=== PATIENT | female | born 2000 | race Caucasian/White ===

== ENCOUNTER 2022-05-11 08:26 | Outpatient (CLI) | payer OTHER, SELFPAY ==
--- NOTE | 2022-05-11 08:45 | CRLHL7_ITS ---
For Patients: As a result of the Cures Act, medical imaging exams and procedure reports are released immediately into your electronic medical record. You may view this report before your referring provider. If you have questions, please contact your health care provider. INDICATION: First trimester scan, establish dates. COMPARISON: None. TECHNIQUE: Real-time castro-scale imaging of the pelvis was performed. FINDINGS: Sonographic imaging demonstrates a single living intrauterine gestation. The embryo demonstrates a regular cardiac rate measuring 161 beats per minute. The embryo`s crown-rump length measurement of 1.8 cm corresponds to a gestational age of 8 weeks 1 day with a sonographic due date of 12/20/2022. There is a normal-appearing yolk sac. There are no gross abnormalities noted within the embryo at this early state of development. The gestational sac has a normal appearance. There is no evidence of a perigestational hemorrhage. The amount of fluid within the sac appears appropriate for gestational age. The cervix is closed. The myometrium appears normal. Corpus luteal cyst right ovary measuring 1.4 cm. Simple ovarian cyst right ovary measuring 2.5 cm. Left ovary normal. Trace pelvic free fluid. Impression: Single living intrauterine with sonographic gestational age 8 weeks 1 day and sonographic due date 12/20/2022. Dictated by Peter Pearson MD @ 05/11/2022 9:40:01 AM (Electronically Signed)
== END 2022-05-11 08:27 | disposition home or self-care (01) ==
LOC: US 08:28
PROVIDERS: Visit Provider Advanced Practice Midwife
DX: Z34.91 Encounter for supervision of normal pregnancy, unspecified, first trimester (principal); Z3A.08 8 weeks gestation of pregnancy
CPT/HCPCS: 76817

== ENCOUNTER 2022-05-11 09:33 | Outpatient (CLI) | payer OTHER, SELFPAY | END 2022-05-11 09:34 | disposition home or self-care (01) | PROVIDERS: Visit Provider Advanced Practice Midwife | DX: Z34.91 Encounter for supervision of normal pregnancy, unspecified, first trimester (principal); Z3A.08 8 weeks gestation of pregnancy | CPT/HCPCS: 86592; 86703; 86762; 86787; 86803; 86850; 86900; 86901; 87086; 87340 ==

== ENCOUNTER 2022-08-03 08:05 | Outpatient (CLI) | payer OTHER, SELFPAY ==
--- NOTE | 2022-08-03 08:15 | CRLHL7_ITS ---
For Patients: As a result of the Century Cures Act, medical imaging exams and procedure reports are released immediately into your electronic medical record. You may view this report before your referring provider. If you have questions, please contact your health care provider. INDICATION: Evaluate anatomy. COMPARISON: 05/11/2022 TECHNIQUE: Real time castro scale imaging of the fetus was performed as well as color Doppler analysis of the umbilical vessels. FINDINGS: Sonographic imaging demonstrates a single living intrauterine gestation. Fetus demonstrates a regular cardiac rate of 159 beats per minute. Fetus has a keshia breech position. The placenta lies right posterior without evidence of placenta previa. The edge of the placenta is located 2.4 cm from the internal cervical os. Amniotic fluid volume appears normal. Single deepest vertical pocket: 5.6 cm. The cervix is closed and measures 4.4 cm in length. The composite ultrasound gestational age is calculated at 20 weeks 4 days with an estimated sonographic due date of 12/17/2022. The estimated weight is 359 grams which lies at the 67th %. The following biometric measurements were obtained: Biparietal diameter: 4.7 cm/20 weeks 2 days 56th% Head circumference: 17.9 cm/20 weeks 2 days 52nd% Abdominal circumference: 15.9 cm/21 weeks 0 days 72nd% Femur length: 3.2 cm/20 weeks 0 days 38th% The HC/AC ratio measures: 1.13 range (1.07-1.25) On anatomic survey, there is a normal appearance of the cerebral ventricles, cavum septi pellucidi, cisterna magna and cerebellum. The nose, lips, and facial profile appear normal. The cervical, thoracic and lumbar spine are well visualized and appear normal. There is a normal four-chamber heart view and the left and right ventricular outflow tracts appear normal. The diaphragm and stomach appear normal. The kidneys and bladder also appear normal. There is a normal three-vessel cord and there is an eccentric cord insertion site. The four extremities appear normal. IMPRESSION: Concordant of clinical and sonographic dating. No intrinsic abnormalities noted on anatomic survey. Eccentric cord insertion into the placenta located 1.9 cm from the placental edge. Dictated by Peter Pearson MD @ 08/03/2022 1:23:47 PM (Electronically Signed)
== END 2022-08-03 08:06 | disposition home or self-care (01) ==
LOC: US 08:09
PROVIDERS: Visit Provider Advanced Practice Midwife
DX: Z34.92 Encounter for supervision of normal pregnancy, unspecified, second trimester (principal); Z3A.20 20 weeks gestation of pregnancy
CPT/HCPCS: 76805

== ENCOUNTER 2022-10-08 10:04 | Outpatient (CLI) | payer OTHER, SELFPAY | END 2022-10-08 10:05 | disposition home or self-care (01) | LOC: NFLDREF 10-11 12:41 | PROVIDERS: Visit Provider Advanced Practice Midwife | DX: Z34.93 Encounter for supervision of normal pregnancy, unspecified, third trimester (principal) | CPT/HCPCS: 86592 ==

== ENCOUNTER 2022-11-23 15:00 | Outpatient (CLI) | payer OTHER, SELFPAY | END 2022-11-23 15:01 | disposition home or self-care (01) | PROVIDERS: Visit Provider Advanced Practice Midwife | DX: Z34.03 Encounter for supervision of normal first pregnancy, third trimester (principal); Z36.85 Encounter for antenatal screening for Streptococcus B; Z3A.36 36 weeks gestation of pregnancy | CPT/HCPCS: 87081; 87653 ==

== ENCOUNTER 2022-12-14 17:19 | Outpatient (CLI) | payer OTHER, SELFPAY ==
[2022-12-15 21:34] VITALS: BMI 26.7
== END 2022-12-14 17:20 | disposition home or self-care (01) ==
LOC: NFLDREF 17:20
PROVIDERS: Visit Provider Advanced Practice Midwife
DX: Z34.93 Encounter for supervision of normal pregnancy, unspecified, third trimester (principal); Z3A.39 39 weeks gestation of pregnancy
CPT/HCPCS: 87086

== ENCOUNTER 2022-12-15 21:26 | Inpatient (IN) | payer OTHER, SELFPAY ==
[2022-12-15 21:35] VITALS: BP 130/80; PULSE 88
--- NOTE | 2022-12-15 22:12 | W.PM.LDBA ---
Subjective History of Present Illness Narrative: Patient is being admitted to Labor and Delivery for active labor. She is a 22 year old at 39.2 weeks gestation. Her full history and physical was dictated by Светлана Lainez CNM on 11/30/22. Please see this for details. Merary started fernando this morning and they slowly increased as the day progressed. Around 1730 they became more regular and intense.She continued to labor at home with support from her partner and her cable tool operator. On admission she was found to be 6cm/90% per RN exam. She denies leaking fluids or bleeding but states that she did loose her mucus plug earlier this evening. She is coping well with contractions and desires a water . 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 History of anxiety was on Zoloft in college not needed since, did not feel meds were helpful for her 2. Varicella non-immune -needs vaccine PP COVID; Flu: TDAP: declines 32wk Mental Health: 10/22/2022 34wk Hgb: 11/09/2022 OB - Problem Based A/P Additional Plan (1) Pain during labor: Status: Acute (2) : Status: Acute Plan ASSESSMENT:? at 39.2 weeks gestation? GBS negative? Uncomplicated ? Active labor at term ?? PLAN:? 1. Candidate for analgesia of choice. Planning unmedicated .?? 2. Desires water . Consent signed. Hep C negative.? 3. Anticipate .? 4. Expectant management at this time.? 5. IV not needed at this time. Consider if patient condition changes per protocol. 6. Intermittent auscultation after reactive stip is obtained.? ? Delivery/Labor/Induction Plan Plan: expectant management OB Result Labs Blood Type: A (+) positive GBS Status: negative OB Exam Physical Exam Vital signs: Pulse BP 88 130/80 12/15/22 21:35 12/15/22 21:35 Narrative: Psychiatric:? Alert and oriented x3? HEENT:? Normocephalic, atraumatic? Neck:? Supple without adenopathy or thyromegaly? Lungs:? Clear to auscultation bilaterally? Heart:? Regular rate and rhythm, no murmur, rub or gallop? Abdomen:? Soft, nontender, and gravid? Extremities:? No edema or erythema? Detailed Labor and Delivery Exam Patient Gravid: Yes Dilation (cm): 6 Effacement (%): 90 Contraction Frequency: Q 3-6 min Tachysystole: No Contraction intensity: Strong/Firm Fetus (Single) Heart Rate Baseline: 145 Monitor Accelerations: Present Monitor Decelerations: None [facility] Variability: Moderate (6-25)
[2022-12-15 22:58] VITALS: BMI 26.7
[2022-12-15 23:00] VITALS: BP 114/73; PULSE 102; RESP 16; TEMP 37
[2022-12-16] VITALS (15 sets, daily range): BP systolic 109–129; BP diastolic 58–76; PULSE 86–126; RESP 16; TEMP 36.5–36.6; O2SAT 96
[2022-12-16] MEDS: LIDOCAINE 1 % PF 30 ML INJECTION (05:31)
[2022-12-16] MEDS: IBUPROFEN 600 MG TABLET PO ×3 (05:31→17:40)
--- NOTE | 2022-12-16 05:58 | PM.OBPNL ---
Subjective Time Seen by Provider: 00:30 Date Seen: 12/16/22 Narrative: Merary is tired but has been coping well with contractions. She did get into the tub for a while and labored there. After a while she desired to change positions so decided to go to the bathroom and sit on the toilet for a while. She was then checked for baby position and felt t be ROT. Planed to do side lying release, shake the apple tree and other positions to encourage rotation. Objective Vital Signs: Last Vital Signs Temp 98 F 12/16/22 01:39 Pulse 102 H 12/16/22 05:44 Resp 16 12/16/22 03:03 BP 128/69 12/16/22 05:44 Pelvic Exam Dilation (cm): 8 Effacement (%): 90 Station: 0 Contractions Monitor mode: None Contraction Frequency: 2-4 Contraction pattern: Regular Contraction intensity: Strong/Firm Assessment Assessment: active labor Station: 0 Heart Rate Baseline: 145 (by doppler) Plan Plan: Continue to labor with support. Anticipate .
--- NOTE | 2022-12-16 06:01 | W.PM.OBVAGDE ---
OB Procedure Vag Delivery Mother Details Mother Details: The patient is a 22 year-old, 1, Para 0, admitted on 12/15/22 at 39.3Days gestation. : 1 Para: 1 Weeks Gestation: 39.3 Admission Date: 12/15/22 Additional Details Amniotic Membrane Status: SROM Amniotic Membrane Rupture Date: 12/16/22 Amniotic Membrane Rupture Time: 04:08 Amniotic Membrane Fluid Description: Meconium Stained (lightly stained) Analgesia/Anesthesia Type: None Waterbirth: Yes Pitcoin: No Intrapartal Events: None Labor Onset: 21:00 Complete: 03:54 (presumed with pushing) Pushin:54 Heart: heart tones during second stage were dopplered in the 130-140's. No decreases heard. Delivery Details Delivery Date: 12/16/22 Delivery Time: 04:54 Route of delivery: Gender: Male Infant Viability: Alive; Heart Rate Present Position at Delivery: OA Delivery Details: Patient was admitted for active labor and progressed normally. She labored at home for a few hours with support from her and contact lens polisher before presenting. SROM noted at 0408 with thin meconium fluid in the tub. She labored in the tub for a while and did get out for a while to change positions. A SVE was performed and baby was thought to be ROT. She did multiple position changes to help with baby position with assistance from the nurse and her contact lens polisher. She did get back into the tub after a while and then began to feel an urge to push. Patient was assumed complete at 0354 and pushing at 0354. of a viable male at 0454 on her back in the tub. Vertex delivered OA. No nuchal cord or shoulder. Body delivered easily and without incident. passed to mothers abdomen with a vigorous cry. Cord was clamped and cut at > 5 minutes. APGARS were 9 at one minute and 9 at five minutes respectively. Mouth was bulb suctioned. Intact placenta with a 3 vessel cord delivered spontaneously at 0505. Fundus firm. 2nd degree identified and repaired in typical fashion. QBL 480 cc. Mother and baby stable; mother plans to breastfeed. Infant weight pending.?After a thorough inspection a second degree perineal laceration was found and repaired in the usual fashion. A very shallow labial laceration was found on the right labia. After showing Merary the tear with a mirror, a discussion and shared decision making it was decided not to repair that tear. 1 Minute Interval Total Score: 9 5 Minute Interval Total Score: 9 Additional Details Shoulder Dystocia: No Placenta Delivery Time: 05:05 Placental Delivery Description: Spontaneous Delivery repair: Vicryl Procedure Done: Global Blood Loss: 480 Laceration: Perineal - 2nd Degree Episiotomy Description: None Blood Loss Measurement Type: EBL (230QBL and 250EBL in the tub) Bakri Used: No Sponge/Need Count Correct: Yes Cord Vessel Description: 3 Vessels Event Summary Status: Mother and were stable after delivery. Disposition: floor
[2022-12-16] MEDS: BENZOCAINE/MENTHOL SPRAY 85 GM AEROSOL 1 APPLIC TOPICAL (12:14)
[2022-12-17 01:15] VITALS: BP 115/75; PULSE 96; RESP 18; TEMP 36.7; O2SAT 96
[2022-12-17] MEDS: IBUPROFEN 600 MG TABLET PO ×4 (01:17→21:55)
[2022-12-17 04:49] VITALS: BP 115/77; PULSE 85; RESP 16; TEMP 36.5; O2SAT 97
[2022-12-17] MEDS: LANOLIN CREAM 1 APPLIC TOPICAL (05:54)
[2022-12-17 06:49] LABS: Hemoglobin* 11.9 gm/dL (12.0-16.0)
[2022-12-17 09:31] VITALS: BP 113/77; PULSE 88; RESP 16; TEMP 36.7; O2SAT 97
--- NOTE | 2022-12-17 15:20 | PM.OBPNVD1 ---
OB - PN:Subj Subjective Date Seen: 12/17/22 Narrative: Merary is a 22 y.o. G 1 P 1001 who was admitted to L & D for spontaneous onset of labor. ?She had an uncomplicated NVD. The patient feels well. ?The pain is well controlled with current medications. ?She has no new complaints. ?She is breast feeding and reports things are going ok, having some pain with latch but working with nurses during feedings. the patient has done well.? Vitals have been stable.? She has remained afebrile.? Has a good appetite, is tolerating a general diet. ?She is voiding without difficulty.? She is passing gas and has had a small bowel movement.? She is ambulating and denies any dizziness.? Has small amount of rubra lochia. She had initially desired d/c home but desires continued assistance and support. OB - PN: Obj Exam Physical Exam: Vital signs: Temp Pulse Resp BP Pulse Ox O2 Del Method 98.2 F 89 18 118/76 98 Room Air 12/17/22 16:30 12/17/22 16:30 12/17/22 16:30 12/17/22 16:30 12/17/22 16:30 12/17/22 16:30 Narrative: GENERAL APPEARANCE:? normal affect, alert, no distress MOOD:? appropriate CHEST:? clear to auscultation HEART:? regular rate and rhythm ABDOMEN:? soft, non-tender the uterine fundus is at Umbilicus, Midline and is appropriate for the stage of recovery. PERINEUM:? mild edema of the perineum, there is a Perineal Laceration,?2nd degree, that is healing well. EXTREMITIES:? normal and no edema OB - PN: Obj Data Labs Labs: Laboratory Results - last 24 hr 12/17/22 06:05 Hgb 11.9 L OB - PN: A/P Delivery Assessment and Plan (1) Normal vaginal delivery: Status: Acute (2) care and examination immediately after delivery: Status: Acute (3) Lactating mother: Status: Acute Plan day: 1 Plan: routine care Comments: plan: Routine care. , may see if needed Hgb 11.9. Anticipate discharge home with baby tomorrow
[2022-12-17 16:30] VITALS: BP 118/76; PULSE 89; RESP 18; TEMP 36.8; O2SAT 98
[2022-12-17 20:03] VITALS: BP 120/76; PULSE 89; RESP 16; TEMP 36.8; O2SAT 97
[2022-12-18 03:05] VITALS: BP 126/77; PULSE 86; RESP 16; TEMP 36.6; O2SAT 98
[2022-12-18] MEDS: IBUPROFEN 600 MG TABLET PO (05:10)
--- NOTE | 2022-12-18 08:21 | PM.OBDSVD1 ---
DS: Providers Provider Date Seen: 12/18/22 Date of admission: 12/15/22 21:26 Primary care physician: Not a Local Provider Admitting Clinician: Montse Rojo CNM Attending Physician on discharge: Montse Rojo CNM Date of Discharge: 12/18/22 DS: Diagnosis Discharge Diagnosis (1) Lactating mother: Status: Acute (2) care following vaginal delivery: Status: Acute Exam Narrative: Exam Narrative: GENERAL APPEARANCE:? normal affect, alert, no distress? MOOD:? appropriate? CHEST:? clear to auscultation and percussion? HEART:? regular rate and rhythm? ABDOMEN:? soft, non-tender the uterine fundus is 2 cm Below Umbilicus, Midline and is appropriate for the stage of recovery. ? PERINEUM:? mild edema of the perineum, there is a 2nd degree that is healing well.? EXTREMITIES:? normal and no edema? Patient has no complaints? No active bleeding?? Doing well? She is requesting discharge home.? Const: Vital Signs, click to edit/add: Vital Signs - 24 hr 12/17/22 09:31 12/17/22 16:30 12/17/22 20:03 Temperature 98.0 F 98.2 F 98.2 F Pulse Rate [Blood Pressure Cuff] 88 89 89 Respiratory Rate 16 18 16 Blood Pressure [Ri ght Arm] 113/77 118/76 120/76 Pulse Oximetry 97 98 97 Oxygen Delivery Me thod Room Air Room Air Room Air 12/18/22 03:05 Temperature 97.9 F Pulse Rate [Blood Pressure Cuff] 86 Respiratory Rate 16 Blood Pressure [Ri ght Arm] 126/77 Pulse Oximetry 98 Oxygen Delivery Me thod Room Air Documenting provider has reviewed patient's vital signs: yes OB - DS: Summary Hospital Course Hospital Course: The patient is a 22 year old G 1 P 1 at 39.3 weeks gestation that was admitted to the Center on 12/15/22 for active labor. She had an uncomplicated vaginal delivery. She delivered a viable male . She is breast feeding and tit is going well. Her right nipple is sore but she is working on improving latch to help it heal. the patient has done well. She is ambulating without difficulty, is passing gas and has had a bowel movement. She is planning condoms for control. We discussed the risks with closely spaced pregnancies. Peripartum Data Infant delivery method: Vaginal Laceration description: Perineal - 2nd Degree Episiotomy description: None complications: none Infant Gender: Male Discharge Plan: Home Status at Discharge Functional status at discharge: independent ambulation Overall status at discharge: patient is progressing back to baseline Time Spent with Patient Time attestation: Total time spent providing and/or coordinating discharge services: Discharge Plan Discharge Disposition: Home, Self-Care Date of Admission: 12/15/22 21:26 Attending Provider on Discharge: Montse Rojo Primary Care Provider: Provider,Not a Local Condition: Stable Anticipated Discharge Date/Time: 12/18/22 10:00 Discharge Medications: New docusate sodium 100 mg Capsule 100 mg PO DAILY Qty: 60 0RF Rx Instructions: Take 1-2 tablets daily as needed for constipation. ibuprofen 600 mg Tablet 600 mg PO Q6H PRNQty: 20 0RF Continued DHA 200 mg capsule 200 mg PO DAILY Discharge Orders: Discharge Order (Routine); Ordered 12/18/22 Ordered By: Montse Rojo Patient Education: OB Vaginal/Breast Feeding Additional Instructions: Discharge instructions were reviewed with the patient including signs and symptoms of infection and home going medications.? Lifting Restrictions: 20 pounds for 6? weeks? ?? Do not drive while taking narcotic pain meds.? Off Work or School for 6 weeks.? ?? Symptoms to report to doctor:? -Bleeding that saturates more than one pad per hour? -Passing clots larger than the size of a golf ball? -Pain not relieved by prescribed medication? -Fever above 100.4 degrees Fahrenheit? -A foul vaginal odor? -Difficulty in emotions, mood and functions? -Thoughts of hurting yourself and/or ? -Painful, reddened area in your breast? -Any drainage, redness or tenderness in your IV/epidural site? -Severe headache that doesn't improve after taking medications? -Changes in vision, including temporary loss of vision, blurred vision, and/or light sensitivity? -Upper abdominal pain (usually under ribs on the right side)? -Decrease in urination or painful, frequent urinating? -Chest pain? -Shortness of breath? -Tenderness or pain with redness and/swelling in the calf(s) of your leg? ?? Follow Up in clinic in 2 and 6 weeks.? ?? consultation services are available to all mothers and babies for the first year after delivery.? To make an appointment, please call [phone].? Activity Level: Activity as Tolerated Discharge Diet: Regular Follow Up Appointments: Provider,Not a Local [Primary Care Provider] - [facility] [Provider Group] Forms: MyHealth Info Instructions
[2022-12-18 09:00] VITALS: BP 112/69; PULSE 82; RESP 18; TEMP 36.7; O2SAT 98
== END 2022-12-18 11:35 | disposition home or self-care (01) | DRG 807 ==
LOC: OB OUT 21:26 → OB 21:26
PROVIDERS: Admitting Provider Advanced Practice Midwife; Visit Provider Advanced Practice Midwife
DX: O77.0 Labor and delivery complicated by meconium in amniotic fluid (principal); Z37.0 Single live birth; O70.1 Second degree perineal laceration during delivery; Z3A.39 39 weeks gestation of pregnancy; Z86.59 Personal history of other mental and behavioral disorders
CPT/HCPCS: 36415; 85018; A9270; J2001

== ENCOUNTER 2023-01-25 13:53 | Outpatient (CLI) | payer OTHER, SELFPAY | END 2023-01-25 13:54 | disposition home or self-care (01) | LOC: NFLDREF 01-27 08:08 | PROVIDERS: Visit Provider Advanced Practice Midwife | DX: R82.90 Unspecified abnormal findings in urine (principal) | CPT/HCPCS: 87086 ==

== ENCOUNTER 2024-06-29 10:34 | Outpatient (CLI) | payer OTHER, SELFPAY | END 2024-06-29 10:35 | disposition home or self-care (01) | PROVIDERS: Visit Provider Advanced Practice Midwife | DX: Z31.69 Encounter for other general counseling and advice on procreation (principal); R53.83 Other fatigue; R10.2 Pelvic and perineal pain; I49.9 Cardiac arrhythmia, unspecified | CPT/HCPCS: 82728; 84443 ==

== ENCOUNTER 2024-08-28 13:51 | Outpatient (CLI) | payer OTHER, SELFPAY ==
--- NOTE | 2024-08-28 14:00 | CRLHL7_ITS ---
For Patients: As a result of the Cures Act, medical imaging exams and procedure reports are released immediately into your electronic medical record. You may view this report before your referring provider. If you have questions, please contact your health care provider. OB ULTRASOUND INDICATION: Dating and viability. TECHNIQUE: Real time grayscale imaging of the fetus was performed. Transvaginal. LMP: 06/25/2024. MAURICIO by LMP: 04/01/2025. GA: 9 w, 1 d. Previous US: No. CRL: 2.3 cm. 9 w 0 d. MAURICIO: 04/02/2025. FHR: 188 BPM. Gestational sac: 3.9 cm. Appears within normal limits. Yolk sac: 4.3 mm. Appears within normal limits. Right ovary: 3.3 x 2.0 x 1.5 cm. Left ovary: 3.6 x 1.9 x 2.0 cm. CL. IMPRESSION: Single living intrauterine measuring 9 weeks 0 days and sonographic due date 04/02/2025. Small crescentic of chorionic hemorrhage measures 15 x 2 x 10 mm. Peter Pearson M.D. Diagnostic Radiologist [email or web address] TESHA/sasha baez/Dictated by: Peter Pearson MD @ 08/29/2024 5:58:00 AM (Electronically Signed)
== END 2024-08-28 13:52 | disposition home or self-care (01) ==
LOC: US 13:54
PROVIDERS: Visit Provider Advanced Practice Midwife
DX: Z34.91 Encounter for supervision of normal pregnancy, unspecified, first trimester (principal); O20.9 Hemorrhage in early pregnancy, unspecified; Z3A.09 9 weeks gestation of pregnancy
CPT/HCPCS: 76817; 83021; 86703; 86706; 86803; 86850; 86900; 86901; 87086; 87340

== ENCOUNTER 2024-08-28 15:07 | Outpatient (CLI) | payer OTHER, SELFPAY | END 2024-08-28 15:08 | disposition home or self-care (01) | PROVIDERS: Visit Provider Midwife | DX: Z34.91 Encounter for supervision of normal pregnancy, unspecified, first trimester (principal); Z3A.09 9 weeks gestation of pregnancy | CPT/HCPCS: 83020; 83021; 85660; 86592; 86703; 86704; 86706; 86762; 86787; 86803; 86850; 86900; 86901; 87086; 87340 ==

== ENCOUNTER 2024-10-02 13:07 | Outpatient (CLI) | payer OTHER, SELFPAY | END 2024-10-02 13:08 | disposition home or self-care (01) | LOC: NFLDREF 10-07 13:25 | PROVIDERS: Visit Provider Advanced Practice Midwife | DX: Z34.82 Encounter for supervision of other normal pregnancy, second trimester (principal) | CPT/HCPCS: 87491; 87591 ==

== ENCOUNTER 2024-11-13 09:18 | Outpatient (CLI) | payer OTHER, SELFPAY ==
--- NOTE | 2024-11-13 09:15 | CRLHL7_ITS ---
For Patients: As a result of the 21st Century Cures Act, medical imaging exams and procedure reports are released immediately into your electronic medical record. You may view this report before your referring provider. If you have questions, please contact your health care provider. OB ULTRASOUND SURVEY LMP: 06/25/2024. MAURICIO by LMP: . GA: 20 w, 1 d. INDICATION: Supervision of normal . TECHNIQUE: Real time castro scale imaging of the fetus was performed. Evaluate anatomy. Transabdominal imaging performed. position: Oblique, breech. Cervix: Visualized. Technique: Transabdominal. Length of closed cervix: 4.0 cm. Placenta/cord: Posterior. Technique: Transabdominal. Placenta tip to internal OS: 2.6 cm. Umbilical Cord: 3-vessel cord. Placenta insertion: Marginal (within 2 cm of placenta edge). Amniotic Fluid: 5.1 cm SDP (greater than/equal to: 2- less than 8 cm). SURVEY: Observed Structures. Calvarium/Spine: Cerebellum: 2.1 cm, 20 w 6 d. Cisterna Magna: 2.9 mm. Nuchal Fold: 4.1 mm. Lateral Ventricle: 7.2 mm. CSP: Yes. Midline Falx: Yes. Choroid Plexus: Yes. Spine: Yes. Abdomen: Stomach: Yes. Abd Cord Insertion: Yes. Urinary Bladder: Yes. Kidneys: Yes. Diaphragm: Yes. Face: Nose/lips: Yes. Orbital view: Yes. Profile: Yes. Limbs: Upper Extremities: Yes. Lower Extremities: Yes. Hands: Yes. Feet: Yes. Vascular: 4-Chamber Heart: Yes. LVOT: Yes. RVOT: Yes. 3VV: See impression. 3VTV: See impression. BPD: 4.6 cm. 19 w, 6 d, 37 percent. HC: 17.5 cm. 20 w, 0 d, 34 percent. AC: 15.6 cm. 20 w, 6 d, 66 percent. FL: 3.3 cm. 20 w, 2 d, 50 percent. FL/AC ratio: 21.16 percent. HC/AC ratio: 1.12. heart rate: 155 bpm. age by this US: 20 w, 3 d. MAURICIO by this US: 03/30/2025. EFW: 358.55 g. Weight: 0 lbs, 13 oz. Percentile by MAURICIO: 67 percent. IMPRESSION: 1. Concordance of clinical and sonographic dating. 2. The placental cord insertion may be marginal. Follow-up recommended. 3. Placental edge 2.6 cm from the internal cervical os. 4. Incomplete visualization of the three-vessel view and a three-vessel trachea. Short-term follow-up recommended. Remainder of the anatomic survey is normal. Peter Pearson M.D. Diagnostic Radiologist [email or web address] TESHA/sasha baez/Dictated by: Peter Pearson MD @ 11/13/2024 3:41:00 PM (Electronically Signed)
== END 2024-11-13 09:19 | disposition home or self-care (01) ==
LOC: US 09:19
PROVIDERS: Visit Provider Advanced Practice Midwife
DX: Z34.92 Encounter for supervision of normal pregnancy, unspecified, second trimester (principal); Z3A.20 20 weeks gestation of pregnancy
CPT/HCPCS: 76805

== ENCOUNTER 2024-11-27 08:15 | Outpatient (CLI) | payer OTHER, SELFPAY ==
--- NOTE | 2024-11-27 08:24 | CRLHL7_ITS ---
For Patients: As a result of the Century Cures Act, medical imaging exams and procedure reports are released immediately into your electronic medical record. You may view this report before your referring provider. If you have questions, please contact your health care provider. OB ULTRASOUND FOLLOW UP, 11/27/2024 LMP: 06/25/2024. MAURICIO by LMP: 04/01/2025. GA: 22 w, 1 d. INDICATION: Supervision of normal . TECHNIQUE: Real time castro scale imaging of the fetus was performed. Transabdominal. position: Vertex. Cervix: Not visualized. Placenta: Posterior. Amniotic Fluid: 4.2 cm SDP (greater than/equal to: 2- less than 8 cm). Technique: Transabdominal. heart rate: 144 bpm. IMPRESSION: 1. Normal spine, kidneys, four-chamber heart, outflow tracts, three-vessel view and three-vessel trachea view. 2. Normal renal arteries. 3. The placental cord insertion is marginal, less than 1 cm from the placental edge. Peter Pearson M.D. Diagnostic Radiologist [email or web address] TESHA/devante JR/Dictated by: Peter Pearson MD @ 11/27/2024 10:51:00 AM (Electronically Signed)
== END 2024-11-27 08:16 | disposition home or self-care (01) ==
LOC: US 08:15
PROVIDERS: Visit Provider Advanced Practice Midwife
DX: Z34.92 Encounter for supervision of normal pregnancy, unspecified, second trimester (principal); Z3A.22 22 weeks gestation of pregnancy
CPT/HCPCS: 76816

== ENCOUNTER 2025-01-10 09:32 | Outpatient (CLI) | payer OTHER, SELFPAY | END 2025-01-10 09:33 | disposition home or self-care (01) | LOC: NFLDREF 01-16 01:51 | PROVIDERS: Visit Provider Advanced Practice Midwife | DX: Z34.93 Encounter for supervision of normal pregnancy, unspecified, third trimester (principal); Z3A.28 28 weeks gestation of pregnancy | CPT/HCPCS: 86592 ==

== ENCOUNTER 2025-01-10 09:50 | Outpatient (CLI) | payer OTHER, SELFPAY ==
--- NOTE | 2025-01-10 10:00 | CRLHL7_ITS ---
For Patients: As a result of the Century Cures Act, medical imaging exams and procedure reports are released immediately into your electronic medical record. You may view this report before your referring provider. If you have questions, please contact your health care provider. OB ULTRASOUND FOLLOW-UP GROWTH Clinical History LMP: 06/25/2024. MAURICIO by LMP: 04/01/2025. GA: 28 w, 3 d. Single. Comparison: 11/13/2024. INDICATION: Marginal cord insertion. TECHNIQUE: Real time castro scale imaging of the fetus was performed. Transabdominal imaging performed. CERVIX: Not visualized. POSITIONING: Vertex. AMNIOTIC FLUID: 3.7 cm SDP (N: greater than 2 x 1 cm) PLACENTA: Technique: Transabdominal. PLACENTA POSITION: Posterior. DOPPLER: heart rate: 152 bpm. BIOMETRY: BPD: 7.2 cm. 28 w, 5 d, 47 percent. HC: 26.4 cm. 28 w, 5 d, 26 percent. AC: 23.6 cm. 28 w, 0 d, 28 percent. FL: 5.4 cm. 28 w, 0 d, 22 percent. FL/AC ratio: 22.23 percent. HC/AC ratio: 1.12. EFW: 1169 g. Weight: 2 lbs, 9 oz. age by this US: 28 w, 3 d. MAURICIO by this US: 04/01/2025. Percentile by MAURICIO: 25 percent. IMPRESSION: 1. Sonographic gestational age 28 weeks 3 days and sonographic due date 04/01/2025. Good correlation with dates. Normal interval growth. 2. Estimated weight 25th percentile. Abdominal circumference 28th percentile. Peter Pearson M.D. Diagnostic Radiologist [email or web address] SP/Dictated by: Peter Pearson MD @ 01/10/2025 10:48:00 AM (Electronically Signed)
== END 2025-01-10 09:51 | disposition home or self-care (01) ==
LOC: US 09:51
PROVIDERS: Visit Provider Advanced Practice Midwife
DX: O43.193 Other malformation of placenta, third trimester (principal); Z3A.28 28 weeks gestation of pregnancy
CPT/HCPCS: 76816

== ENCOUNTER 2025-02-19 11:23 | Outpatient (CLI) | payer OTHER, SELFPAY ==
--- NOTE | 2025-02-19 11:30 | CRLHL7_ITS ---
For Patients: As a result of the Century Cures Act, medical imaging exams and procedure reports are released immediately into your electronic medical record. You may view this report before your referring provider. If you have questions, please contact your health care provider. ULTRASOUND OB PELVIS FOLLOW UP LMP: 06/25/2024. MAURICIO by LMP: 04/01/2025. GA: 34w, 1d. Single. INDICATION: Marginal cord insertion. CERVIX: Not visualized. POSITIONING: Vertex. AMNIOTIC FLUID: 4.4 cm SDP. PLACENTA: Technique: Transabdominal. PLACENTA POSITION: Posterior. DOPPLER: heart rate: 159 bpm. BIOMETRY: BPD: 8.4 cm. 33w, 5d, 33.1 percent. HC: 30.9 cm. 34w, 4d, 23.5 percent. AC: 30.4 cm. 34w, 3d, 60.7 percent. FL: 6.5 cm. 33w, 2d, 20.7 percent. FL/AC ratio: 21.3 percent. HC/AC ratio: 1.0. EFW: 2331 g. Weight: 5 lbs, 2 oz. age by this US: 34w, 0d. MAURICIO by this US: 04/02/2025. Percentile by MAURICIO: 40.0 percent. IMPRESSION: 1. Sonographic gestational age 34 weeks 0 days and sonographic due date 04/02/2025. Good correlation with dates. Normal interval growth. 2. Estimated weight 40th percentile. Abdominal circumference 61st percentile. Peter Pearson M.D. Diagnostic Radiologist [email or web address] bM/Dictated by: Peter Pearson MD @ 02/19/2025 12:18:00 PM (Electronically Signed)
== END 2025-02-19 11:24 | disposition home or self-care (01) ==
LOC: US 11:23
PROVIDERS: Visit Provider Advanced Practice Midwife
DX: O43.193 Other malformation of placenta, third trimester (principal); Z3A.34 34 weeks gestation of pregnancy
CPT/HCPCS: 76816